=== PATIENT | female | born 1965 ===

== ENCOUNTER 2018-03-31 12:25 | Outpatient (CLI) | payer OTHER ==
[~2018-03-31 12:25] MED LIST: ATACAND32 MG; GLUMETZA1000 MG; VOLTAREM 50 MG PO; ZOCOR20 MG
== END 2018-03-31 12:38 | disposition home or self-care (01) ==
LOC: RAD 12:25
DX: Z00.01 Encounter for general adult medical examination with abnormal findings (principal); M79.645 Pain in left finger(s)